=== PATIENT | male | born 1975 | race Caucasian/White ===

== ENCOUNTER 2017-02-27 10:55 | Emergency (ER) | payer OTHER ==
[~2017-02-27] VITALS: Ht 188 cm; Wt 116.0 kg
[2017-02-27] MEDS ORDERED: KETOROLAC 30 MG/1 ML ONE (11:24)
[2017-02-27] MEDS ORDERED: KETOROLAC 30 MG/1 ML IVPush ONE (11:30)
[2017-02-27] MEDS ORDERED: SODIUM CHLORIDE FLUSH 10ML SYR IVF ONE (11:30)
[2017-02-27] MEDS ORDERED: SODIUM CHLORIDE 0.9% 1,000ML IVBOLUS ONE (11:30)
[2017-02-27 12:07] LABS: HEMATOCRIT 43.3 % (39.2-51.8); HEMOGLOBIN 14.8 g/dL (13.7-18.0); WHITE BLOOD COUNT 13.1 x10^3/uL (3.4-10)
[2017-02-27 12:22] LABS: RAPID INFLUENZA A Negative (Negative); RAPID INFLUENZA B Negative (Negative)
[2017-02-27 12:28] LABS: ASPARTATE AMINO TRANSFERASE 57 U/L (15-37); BLOOD UREA NITROGEN 9 mg/dL (7-18)
[2017-02-27] MEDS ORDERED: LORazepam 1MG TABLET PO ONE (12:30)
[2017-02-27] MEDS ORDERED: LORazepam 2 MG/ML, 1ML ONE (12:33)
[2017-02-27] MEDS ORDERED: LORazepam 2 MG/ML, 1ML IVPush ONE (13:00)
[2017-02-27 13:40] VITALS: BP 114/57
== END 2017-02-27 13:43 | disposition home or self-care (01) ==
LOC: ED 11:38
DX: B96.89 Other specified bacterial agents as the cause of diseases classified elsewhere (principal); J20.8 Acute bronchitis due to other specified organisms
CPT/HCPCS: 36415; 71010; 74000; 80053; 83605; 84145; 85025; 87040; 87400; 93005; 96361; 96374; 96375; 99285; J1885; J2060; J7030